=== PATIENT | female | born 1950 | race Caucasian/White ===

== ENCOUNTER 2019-02-20 18:32 | Inpatient (IN) ==
[2019-02-20] MEDS ORDERED: CEFTAZIDIME IV STA (18:59)
[2019-02-20] MEDS ORDERED: DEXTROSE 5% IV STA (18:59)
[2019-02-20] MEDS ORDERED: AZITHROMYCIN 500 MG in DEXTROSE 5% 250 ML IV STA (18:59)
[2019-02-20] MEDS ORDERED: ALBUT/IPRATROP 3MG/0.5MG NEB 3 ML VIAL INH STA (18:59)
[2019-02-20] MEDS ORDERED: cefTRIAXone SODIUM 2,000 MG/70 ML BAG IV ONE (19:30)
--- NOTE | 2019-02-20 19:33 | XRay Report ---
XR chest 1V portable CLINICAL HISTORY: Dyspnea dyspnea COMPARISON STUDY: No previous studies for comparison. Findings: Moderate cordio megaly.. Parenchymal infiltrate left base. Lungs otherwise appear clear. Di aphragms are smooth. Calcifications are sharp. IMPRESSION: Parenchymal infiltrate left base. The above report was generated using voice recognition software. It may contain grammatical, syntax or spelling errors. Electronically signed by: Gustavo Holder M.D. 02/20/2019 7:31 PM
[2019-02-20 19:44] LABS: Alanine Aminotransferase 23 U/L (12-78); Albumin Level 3.2 gm/dl (3.4-5.0); Aspartate Aminotransferase 18 U/L (15-37); BUN Creatinine Ratio 26.8 (10-20); Blood Urea Nitrogen 62 mg/dl (7-18); Calcium 8.8 mg/dl (8.5-10.1); Carbon Dioxide 21 mmol/L (21-32); Chloride 112 mmol/L (98-107); Creatinine Clr Calc Pharmacy 28.8 ml/min; Est GFR (African American) 24.4; Glucose 132 mg/dl (70-99); Potassium 3.9 mmol/L (3.5-5.1); Sodium 142 mmol/L (136-145)
[2019-02-20 19:48] LABS: Albumin Globulin Ratio 1.1 (0.9-2); Alkaline Phosphatase 38 U/L (45-117); Bilirubin,Total 0.7 mg/dl (0.2-1); Globulin 2.8 gm/dl (2.5-4.0); Troponin I < 0.015 ng/ml (0-0.045)
[2019-02-20 19:57] LABS: Influenza A virus by PCR Neg for Influ A (Neg); Influenza B virus by PCR Neg for Influ B (Neg)
[2019-02-20] MEDS ORDERED: SODIUM CHLORIDE 0.9% 1000ML 1,000 ML IV ONE (20:02)
--- NOTE | 2019-02-20 20:02 | Emergency Department Note ---
Entered by Brooklynn Corey acting as a scribe for History of Present Illness General Chief complaint: Shortness of Breath/Dyspnea Stated complaint: sob Time Seen by Provider: 02/20/19 18:52 Source: patient History of Present Illness Provider complaint: Shortness of Breath Onset (ago): day(s) 1 Location: chest Relieved By: + none Exacerbated By: + none Associated symptoms: + cough (With green phlegm ) and + fever/chills The patient is a 68 year old female who presents to the Emergency Room with complaints of shortness of breath that began yesterday. The patient states she had a cold 1 week ago that has gotten progressively worse. The patient states the symptoms are not relieved nor exacerbated by anything specific. The patient reports experiencing a cough that originally brought up clear phlegm and is now green. The patient denies experiencing any fever/chills. Home Medications Home Medications Medication Instructions Recorded Confirmed Type Sodium Bicarb Tab 10 mg PO DAILY 02/20/19 02/20/19 History acetaminophen [Tylenol Extra 1,000 mg PO Q6H PRN 02/20/19 02/20/19 History Strength] amlodipine 10 mg PO DAILY 02/20/19 02/20/19 History chlorthalidone 25 mg PO DAILY 02/20/19 02/20/19 History dapsone 100 mg PO DAILY 02/20/19 02/20/19 History isosorbide mononitrate 30 mg PO QAM 02/20/19 02/20/19 History krill oil 500 mg PO DAILY 02/20/19 02/20/19 History losartan 100 mg PO DAILY 02/20/19 02/20/19 History metoprolol succinate 200 mg PO DAILY 02/20/19 02/20/19 History prednisone 20 mg PO DAILY 02/20/19 02/20/19 History Allergies Allergy/AdvReac Type Severity Reaction Status Date / Time Penicillins Allergy Severe itching Verified 02/20/19 19:23 Past Med/Surg History Medical History No pertinent past medical history Family History Other Family history non-contributory Social History Feels Safe at Home: Yes Smoking Status: Never smoker Review of Systems See HPI for pertinent positives & negatives. and A total of 10 systems reviewed and were otherwise negative Physical Exam Vital Signs Vital Signs - 24 hr 02/20/19 18:38 02/20/19 19:17 Temperature 37.6 C H Temperature Source Oral Pulse Rate 71 Pulse Rate [Right Finger] 85 Pulse Rhythm Regular Pulse Strength Normal Respiratory Rate 20 20 Respiratory Effort / Characteristics Non-Labored Spontaneous Non-Labored Respiratory Depth Normal Respiratory Pattern Regular Blood Pressure 165/74 H Blood Pressure Mean 104 Blood Pressure Position Lying Pulse Oximetry 93 93 Oxygen Delivery Method Nasal Cannula Nasal Cannula Oxygen Flow Rate 3 3 Sepsis Recent Fever Within 48 Hours Yes Sepsis New/Unexplained Change in Mental Status No Sepsis Action Taken by Nursing No Action Required Oxygen Flow Rate - Titration 3 Pulse Oximetry Post Tiitration 94 CONSTITUTIONAL/VITAL SIGNS: Reviewed / noted above. GENERAL: Non-toxic in appearance. INTEGUMENTARY: Warm, dry, and [place]. HEAD: Normocephalic. EYES: without scleral icterus or trauma. ENT/OROPHARYNX: clear and moist. LYMPHADENOPATHY/NECK: Is supple without lymphadenopathy or meningismus. RESPIRATORY: Rhonchi left base. CARDIOVASCULAR: Regular rate and rhythm. GI/ABDOMEN: Soft and nontender. No organomegaly or pulsatile mass. No rebound or guarding. Normal bowel sounds. EXTREMITIES: Warm and well perfused. BACK: No CVA tenderness. NEUROLOGICAL: Intact without focal deficits. PSYCHIATRIC: normal affect. MUSCULOSKELETAL: Normally developed with good muscle tone. Course Course 1852: Past medical records reviewed. The patient was evaluated in room A10. A complete history and physical exam was performed. 1957: I spoke with Dr. Deepika Borden- Hospitalist about the patient's case and she will accept the patient for further evaluation. Administered Medications Discontinued Medications Albuterol (Duoneb) 3 ml INH NOW STA Stop: 02/20/19 19:00 Last Admin: 02/20/19 19:17 Dose: 3 ml Documented by: [id number] Ceftazidime 1 mg/ Dextrose 50 mls @ 100 mls/hr IV NOW STA Stop: 02/20/19 19:28 Last Admin: 02/20/19 19:15 Dose: Not Given Documented by: [id number] Ceftriaxone Sodium (Rocephin) 2,000 mg in 70 mls @ 140 mls/hr IV ONE ONE Stop: 02/20/19 19:59 Last Admin: 02/20/19 19:35 Dose: 140 mls/hr Documented by: [id number] Medical Decision Making Differential Diagnosis Differential diagnosis: Etiologies such as infections, reactive airway disease, COPD, pneumonia, pleural effusion, pulmonary edema, ARDS, pneumothorax, CHF, cardiac ischemia, cardiac tamponade, dysrhythmia, anemia, pulmonary embolism, musculoskeletal, gastrointestinal process, as well as others were entertained. Medical Records Attestation: I reviewed the patient's medical records. Home Medications Current Medication List: was personally reviewed by me Laboratory Data Attestation: I reviewed the patient's lab results. Result diagrams: 02/20/19 19:15 02/20/19 19:15 Lab Results 02/20/19 02/20/19 02/20/19 Range/Units 19:15 19:15 19:15 WBC Cancelled RBC Cancelled Hgb Cancelled Hct Cancelled MCV Cancelled MCH Cancelled MCHC Cancelled RDW Std Deviation Cancelled RDW Coeff of Abigail Cancelled Plt Count Cancelled MPV Cancelled Immature Gran % (Auto) Cancelled Neut % (Auto) Cancelled Lymph % (Auto) Cancelled [place] % (Auto) Cancelled Eos % (Auto) Cancelled Baso % (Auto) Cancelled Immature Gran # (Auto) Cancelled Neut # (Auto) Cancelled Lymph # (Auto) Cancelled [place] # (Auto) Cancelled Eos # (Auto) Cancelled Baso # (Auto) Cancelled Absolute Nucleated RBC Cancelled Nucleated RBC % (auto) Cancelled Neutrophils % (Manual) Cancelled Band Neutrophils % Cancelled Lymphocytes % (Manual) Cancelled Prolymphocyte % Cancelled Reactive Lymphs % (Man) Cancelled Monocytes % (Manual) Cancelled Eosinophils % (Manual) Cancelled Basophils % (Manual) Cancelled Metamyelocytes % (Man) Cancelled Myelocytes % (Man) Cancelled Promyelocytes % (Man) Cancelled Blast Cells % (Manual) Cancelled Plasma Cell % (Manual) Cancelled Other Cells % Cancelled Nucleated RBC % Cancelled Neutrophils # (Manual) Cancelled Band Neutrophils # Cancelled Total Absolute Neuts Cancelled Lymphocytes # (Manual) Cancelled Prolymphocyte # Cancelled Reactive Lymphs # Cancelled Total Abs Lymphocytes Cancelled Monocytes # (Manual) Cancelled Eosinophils # (Manual) Cancelled Basophils # (Manual) Cancelled Metamyelocytes # (Man) Cancelled Myelocytes # (Manual) Cancelled Promyelocytes # (Man) Cancelled Blast Cells # (Man) Cancelled Plasma Cell # (Manual) Cancelled Other Cells # Cancelled Nucleated RBCs # (Man) Cancelled Hypersegmented Neuts Cancelled Hyposegmented Neuts Cancelled Hypogranular Neuts Cancelled Large Granular Lymphs Cancelled # Lrg Granular Lymphs Cancelled Hairy Cells Cancelled Smudge Cells Cancelled Toxic Granulation Cancelled Toxic Vacuolation Cancelled Dohle Bodies Cancelled Thierry Rods Cancelled Platelet Estimate Cancelled Hypogranular Platelets Cancelled Clumped Platelets Cancelled Giant Platelets Cancelled Platelet Satelliting Cancelled RBC Morphology Cancelled Polychromasia Cancelled Hypochromasia Cancelled Poikilocytosis Cancelled Basophilic Stippling Cancelled Anisocytosis Cancelled Microcytosis Cancelled Macrocytosis Cancelled Spherocytes Cancelled Pappenheimer Bodies Cancelled Sickle Cells Cancelled Target Cells Cancelled Tear Drop Cells Cancelled Ovalocytes Cancelled Stomatocytes Cancelled [place] Bodies Cancelled Echinocytes Cancelled Acanthocytes (Spur) Cancelled Rouleaux Cancelled RBC Agglutinates Cancelled Schistocytes Cancelled RBC Morph Comment Cancelled [place] Cell Cancelled PT Cancelled INR Cancelled APTT Cancelled PTT Ratio Cancelled Sodium 142 (136-145) mmol/L Potassium 3.9 (3.5-5.1) mmol/L Chloride 112 H (98-107) mmol/L Carbon Dioxide 21 (21-32) mmol/L Anion Gap 9.0 (3-11) BUN 62 H (7-18) mg/dl Creatinine 2.31 H (0.6-1.2) mg/dl Est Cr Clr Drug Dosing 28.8 ml/min Est GFR ( Amer) 24.4 Est GFR (Non-Af Amer) 21.0 BUN/Creatinine Ratio 26.8 H (10-20) Glucose 132 H (70-99) mg/dl Calcium 8.8 (8.5-10.1) mg/dl Total Bilirubin 0.7 (0.2-1) mg/dl AST 18 (15-37) U/L ALT 23 (12-78) U/L Alkaline Phosphatase 38 L (45-117) U/L Troponin I < 0.015 (0-0.045) ng/ml Total Protein 6.0 L (6.4-8.2) gm/dl Albumin 3.2 L (3.4-5.0) gm/dl Globulin 2.8 (2.5-4.0) gm/dl Albumin/Globulin Ratio 1.1 (0.9-2) Influenza Type A (PCR) (Neg) Influenza Type B (PCR) (Neg) 02/20/19 Range/Units 19:15 WBC RBC Hgb Hct MCV MCH MCHC RDW Std Deviation RDW Coeff of Abigail Plt Count MPV Immature Gran % (Auto) Neut % (Auto) Lymph % (Auto) [place] % (Auto) Eos % (Auto) Baso % (Auto) Immature Gran # (Auto) Neut # (Auto) Lymph # (Auto) [place] # (Auto) Eos # (Auto) Baso # (Auto) Absolute Nucleated RBC Nucleated RBC % (auto) Neutrophils % (Manual) Band Neutrophils % Lymphocytes % (Manual) Prolymphocyte % Reactive Lymphs % (Man) Monocytes % (Manual) Eosinophils % (Manual) Basophils % (Manual) Metamyelocytes % (Man) Myelocytes % (Man) Promyelocytes % (Man) Blast Cells % (Manual) Plasma Cell % (Manual) Other Cells % Nucleated RBC % Neutrophils # (Manual) Band Neutrophils # Total Absolute Neuts Lymphocytes # (Manual) Prolymphocyte # Reactive Lymphs # Total Abs Lymphocytes Monocytes # (Manual) Eosinophils # (Manual) Basophils # (Manual) Metamyelocytes # (Man) Myelocytes # (Manual) Promyelocytes # (Man) Blast Cells # (Man) Plasma Cell # (Manual) Other Cells # Nucleated RBCs # (Man) Hypersegmented Neuts Hyposegmented Neuts Hypogranular Neuts Large Granular Lymphs # Lrg Granular Lymphs Hairy Cells Smudge Cells Toxic Granulation Toxic Vacuolation Dohle Bodies Thierry Rods Platelet Estimate Hypogranular Platelets Clumped Platelets Giant Platelets Platelet Satelliting RBC Morphology Polychromasia Hypochromasia Poikilocytosis Basophilic Stippling Anisocytosis Microcytosis Macrocytosis Spherocytes Pappenheimer Bodies Sickle Cells Target Cells Tear Drop Cells Ovalocytes Stomatocytes [place] Bodies Echinocytes Acanthocytes (Spur) Rouleaux RBC Agglutinates Schistocytes RBC Morph Comment Sezary Cell PT INR APTT PTT Ratio Sodium (136-145) mmol/L Potassium (3.5-5.1) mmol/L Chloride (98-107) mmol/L Carbon Dioxide (21-32) mmol/L Anion Gap (3-11) BUN (7-18) mg/dl Creatinine (0.6-1.2) mg/dl Est Cr Clr Drug Dosing ml/min Est GFR ( Amer) Est GFR (Non-Af Amer) BUN/Creatinine Ratio (10-20) Glucose (70-99) mg/dl Calcium (8.5-10.1) mg/dl Total Bilirubin (0.2-1) mg/dl AST (15-37) U/L ALT (12-78) U/L Alkaline Phosphatase (45-117) U/L Troponin I (0-0.045) ng/ml Total Protein (6.4-8.2) gm/dl Albumin (3.4-5.0) gm/dl Globulin (2.5-4.0) gm/dl Albumin/Globulin Ratio (0.9-2) Influenza Type A (PCR) Neg for Influ A (Neg) Influenza Type B (PCR) Neg for Influ B (Neg) Imaging Data Radiologist's Impression: Radiology results as stated below per my review and the radiologist's interpretation: XR chest 1V portable CLINICAL HISTORY: Dyspnea dyspnea COMPARISON STUDY: No previous studies for comparison. Findings: Moderate cordio megaly.. Parenchymal infiltrate left base. Lungs otherwise appear clear. Diaphragms are smooth. Calcifications are sharp. IMPRESSION: Parenchymal infiltrate left base. The above report was generated using voice recognition software. It may contain grammatical, syntax or spelling errors. Electronically signed by: Gustavo Holder M.D. 02/20/2019 7:31 PM ECG Data Attestation: I personally reviewed and interpreted this ECG as follows: Indication: + SOB/dyspnea Rate (beats per minute): 73 Rhythm: + normal sinus ECG ST segments: + Normal ST segments ECG Findings: no PACs and no PVCs Blood Pressure Blood Pressure Findings: Elevated blood pressure Blood Pressure Disposition: further management by hospitalist MUSA Narrative This is a 68-year-old female who presents to the ED with a chief complaint of shortness of breath and cough and cold symptoms. Her symptoms started 9 days ago and progressively worsened. She came up to visit relatives and today started coughing up green mucus and got worse. She states that she had a pneumonia shot 3 weeks ago. Her symptoms have become mild to moderate. Room air oxygen saturations was 84% on her arrival. The patient uses CPAP at night but not oxygen. The patient has some crackles in the left base. EKG showed a normal sinus rhythm. Chest x-ray shows a left base pneumonia. BUN is 62 and creatinine is 2.3. Troponin was negative. The patient was given a DuoNeb treatment as well as IV Rocephin and IV Zithromax. She was also given normal saline 1 L IV. I spoke with the hospitalist, who will see the patient for further inpatient evaluation and care. Impression & Plan LLL pneumonia, Hypoxia Discharge Plan Visit Data Chief Complaint: Shortness of Breath/Dyspnea Stated Complaint: sob ED Provider: Wayne Schwarz Discharge Problem: LLL pneumonia, Hypoxia Forms Stand Alone Forms: My [facility] Prescriptions Prescriptions: No Action metoprolol succinate 200 mg Tablet Extended Release 24 Hr 200 mg PO DAILY RF: 0 prednisone 20 mg Tablet 20 mg PO DAILY RF: 0 isosorbide mononitrate 30 mg Tablet Extended Release 24 Hr 30 mg PO QAM RF: 0 chlorthalidone 25 mg Tablet 25 mg PO DAILY RF: 0 acetaminophen [Tylenol Extra Strength] 500 mg Tablet 1,000 mg PO Q6H PRN (Reason: Pain) RF: 0 amlodipine 10 mg Tablet 10 mg PO DAILY RF: 0 dapsone 100 mg Tablet 100 mg PO DAILY RF: 0 losartan 100 mg Tablet 100 mg PO DAILY RF: 0 krill oil 500 mg Capsule 500 mg PO DAILY RF: 0 Sodium Bicarb Tab 10 mg PO DAILY RF: 0 Discharge Problem: LLL pneumonia Qualifiers: Pneumonia type: due to unspecified organism Qualified Code(s): J18.1 - Lobar pneumonia, unspecified organism The scribe's documentation has been prepared under my direction and personally reviewed by me in its entirety. I confirm that the note above accurately reflects all work, treatment, procedures, and medical decision making performed by me.
[2019-02-20 20:08] LABS: Hematocrit (blood only) 32.3 % (37-47); Hemoglobin 10.3 g/dL (12.0-16.0); Mean Corpuscular Hgb Conc 31.9 g/dL (32-36); Mean Corpuscular Volume 106.6 fL (80-100); Mean Platelet Volume 9.8 fL (7.4-10.4); Platelet Count 174 K/uL (130-400); RDW Standard Deviation 54.3 fL (36.4-46.3); Red Blood Count 3.03 M/uL (4.2-5.4); White Blood Count 16.72 K/uL (4.8-10.8)
[2019-02-20 20:19] LABS: Partial Thromboplastin Ratio 0.8; Partial Thromboplastin Time 22.5 Seconds (21.0-31.0); Prothrombin Time 9.8 Seconds (9.0-12.0)
[2019-02-20 20:30] LABS: Basophils # (auto) 0.02 K/uL (0-0.2); Basophils % (auto) 0.1 %; Eosinophils # (auto) 0.05 K/uL (0-0.5); Eosinophils % (auto) 0.3 %; Immature Granulocytes # (auto) 0.09 K/uL (0.00-0.02); Immature Granulocytes % (auto) 0.5 %; Lymphocytes # (auto) 0.67 K/uL (1.2-3.4); Monocytes # (auto) 1.01 K/uL (0.11-0.59); Neutrophils # (auto) 14.88 K/uL (1.4-6.5); Neutrophils % (auto) 89.1 %
--- NOTE | 2019-02-20 20:43 | History & Physical Report ---
Date of Service February 20, 2019 Assessment & Plan (1) LLL pneumonia: 60-year-old female with history of hypertension, CKD presenting with approximately 9 days of URI symptoms, found to have left lower lobe pneumonia. Presently she is afebrile, hemodynamically stable, requiring small amount of oxygen via nasal cannula to maintain adequate saturation. No respiratory distress, nontoxic in appearance. Patient with no recent hospital stay, no risk for drug-resistant organisms Admit to medical floor We will cover with ceftriaxone 1 g IV daily and azithromycin 250 mg IV daily for community-acquired pneumonia Tylenol as needed for pain or fever Robitussin as needed for cough Present on Admission?: Yes (2) Hypoxia: Patient hypoxic on arrival to 84% on room air. Saturations have improved with nasal cannula. In setting of pneumonia. No respiratory distress Supplemental oxygen as needed Treatment of pneumonia as above Present on Admission?: Yes (3) CKD (chronic kidney disease): BUN = 62, creatinine = 2.31 estimated GFR = 21. Patient reports history of CKD. Her doctor in [place] is preparing her for future dialysis. Uncertain of baseline renal function -Avoid nephrotoxic agents Renal dosing where required Monitor BUN/creatinine/electrolytes, urine output Continue home dose of sodium bicarb -Continue home dose of prednisone 20 mg p.o. daily. Monitor for hypotension and provide stress dosing if needed Will hold home dapsone for now -Patient asked if she will be able to visit her brother once she is started on dialysis. I told her that when that time comes we can try to establish care with a local rn teacher and dialysis center. Present on Admission?: Yes (4) Hypertension: Blood pressure mildly elevated at present. Continue amlodipine Continue chlorthalidone Continue Imdur Continue losartan Continue metoprolol -Continue to monitor blood pressure Present on Admission?: Yes (5) History of cataract surgery: Patient with recent cataract surgery. No complications or complaints She may continue her drops as prescribed -bromfenac 1 drop in the right eye twice daily -prednisolone 1 drop to the right eye 3 times daily -ofloxacin 1 drop to the right eye 4 times daily Patient may use her own eyedrops F/E/N-normal saline at 125 mL/h x 1 L, monitor electrolytes and replete as needed, heart healthy diet as tolerated. Patient with fairly heavy alcohol use, reports 10 drinks per week. Reports that this is down from her prior amount. States that she has no history of withdrawal or seizures. She has gone days to weeks at a time with no alcohol consumption with no problem. Will monitor for withdrawals. No AWSS orders at this time Prophylaxisheparin Codefull Dispositionadmit to medical floor Present on Admission?: Yes History of Present Illness Chief Complaint: Pneumonia Primary Care Provider: NO PCP Ave Gutierrez is a pleasant 68-year-old female with history of hypertension, CKD presenting with pneumonia. Patient is originally from [facility] and is currently in the [place] area visiting her brother. She reports having mild URI symptoms beginning approximately 9 days ago on 02/11/2019, scratchy throat cough and clear phlegm. She manage the symptoms conservatively at home with some improvement. She flew to [place] from [place] on 02/15/2019. Her cold symptoms have been progressively worsening since then. She reports cough productive for green sputum as well as dyspnea on exertion/shortness of breath, some mild chest discomfort associated with cough. Today she experienced shaking chills and had an episode of near syncope which occurred while she was sitting on the commode. Initial vital signs patient found to be afebrile, hypertensive, hypoxic to 84% on room air. This improved to 92% with use of 3 L. Patient with no additional complaints at this time ER course: Albuterol neb, ceftriaxone, azithromycin Allergies Allergy/AdvReac Type Severity Reaction Status Date / Time Penicillins Allergy Severe itching Verified 02/20/19 19:23 Home Medications Home Medications Medication Instructions Recorded Confirmed Type Sodium Bicarb Tab 10 mg PO DAILY 02/20/19 02/20/19 History acetaminophen [Tylenol Extra 1,000 mg PO Q6H PRN 02/20/19 02/20/19 History Strength] amlodipine 10 mg PO DAILY 02/20/19 02/20/19 History chlorthalidone 25 mg PO DAILY 02/20/19 02/20/19 History dapsone 100 mg PO DAILY 02/20/19 02/20/19 History isosorbide mononitrate 30 mg PO QAM 02/20/19 02/20/19 History krill oil 500 mg PO DAILY 02/20/19 02/20/19 History losartan 100 mg PO DAILY 02/20/19 02/20/19 History metoprolol succinate 200 mg PO DAILY 02/20/19 02/20/19 History prednisone 20 mg PO DAILY 02/20/19 02/20/19 History Past Med/Surg History Medical History (Updated 02/20/19 @ 21:05 by Huyen Borden DO) CKD (chronic kidney disease) Hypertension Surgical History (Updated 02/20/19 @ 21:09 by Huyen Borden DO) History of cataract surgery Family History (Updated 02/20/19 @ 20:58 by Huyen Borden DO) Other Asthma Coronary heart disease Dementia Social History (Updated 02/20/19 @ 20:58 by Huyen Borden DO) Feels Safe at Home: Yes Smoking Status: Never smoker Hx Alcohol Use: Yes (Approximately 10 drinks per week) Hx Substance Use: No Review of Systems Review of Systems: All systems reviewed & are unremarkable except as noted in HPI & below Patient denies fevers, abdominal pain, nausea, vomiting, diarrhea, constipation, dysuria, frequency, urgency Patient makes urine. Denies hematuria. + Foamy urine + metallic taste to food Physical Exam Physical Exam: General: patient resting comfortably, NAD, non-toxic in appearance, AA&O x 4, nasal cannula in place Skin: warm, dry, intact, no rashes or lesions HEENT: NC/AT, PERRL, EOMI, anicteric sclera, conjunctiva without injection, external ear normal to inspection and nontender, nares patent, moist mucus membranes, dentition intact, no oropharyngeal lesions, neck supple, trachea midline, no LAD, no thyromegaly, no JVD Heart: +S1/S2, regular, no m/r/g Lungs: equal air entry bilaterally, + crackles and coarse breath sounds in left base, faint scattered end expiratory wheezing in left lung Abd: +BS, soft, NT/ND, no masses/organomegaly/ascites Ext: warm, 2+ pulses in UE/LE bilaterally, no clubbing/cyanosis or edema, no calf tenderness Neuro: nonfocal, patient AA&O x 4, speech intact, no facial droop, moving all extremities on command with equal strength 5/5 Results & Data Vital Signs (Past 12 Hours) Vital Signs Temp Pulse Pulse Resp BP Pulse Ox 02/20/19 20:00 82 19 92 02/20/19 19:30 79 24 93 02/20/19 19:17 85 20 93 02/20/19 19:00 76 21 93 02/20/19 18:40 74 21 92 02/20/19 18:38 37.6 C H 70 24 165/74 H 93 Laboratory Results Lab Results 02/20/19 02/20/19 02/20/19 Range/Units 19:15 19:15 19:15 WBC Cancelled RBC Cancelled Hgb Cancelled Hct Cancelled MCV Cancelled MCH Cancelled MCHC Cancelled RDW Std Deviation Cancelled RDW Coeff of Abigail Cancelled Plt Count Cancelled MPV Cancelled Immature Gran % (Auto) Cancelled Neut % (Auto) Cancelled Lymph % (Auto) Cancelled Park % (Auto) Cancelled Eos % (Auto) Cancelled Baso % (Auto) Cancelled Immature Gran # (Auto) Cancelled Neut # (Auto) Cancelled Lymph # (Auto) Cancelled Park # (Auto) Cancelled Eos # (Auto) Cancelled Baso # (Auto) Cancelled Absolute Nucleated RBC Cancelled Nucleated RBC % (auto) Cancelled Neutrophils % (Manual) Cancelled Band Neutrophils % Cancelled Lymphocytes % (Manual) Cancelled Prolymphocyte % Cancelled Reactive Lymphs % (Man) Cancelled Monocytes % (Manual) Cancelled Eosinophils % (Manual) Cancelled Basophils % (Manual) Cancelled Metamyelocytes % (Man) Cancelled Myelocytes % (Man) Cancelled Promyelocytes % (Man) Cancelled Blast Cells % (Manual) Cancelled Plasma Cell % (Manual) Cancelled Other Cells % Cancelled Nucleated RBC % Cancelled Neutrophils # (Manual) Cancelled Band Neutrophils # Cancelled Total Absolute Neuts Cancelled Lymphocytes # (Manual) Cancelled Prolymphocyte # Cancelled Reactive Lymphs # Cancelled Total Abs Lymphocytes Cancelled Monocytes # (Manual) Cancelled Eosinophils # (Manual) Cancelled Basophils # (Manual) Cancelled Metamyelocytes # (Man) Cancelled Myelocytes # (Manual) Cancelled Promyelocytes # (Man) Cancelled Blast Cells # (Man) Cancelled Plasma Cell # (Manual) Cancelled Other Cells # Cancelled Nucleated RBCs # (Man) Cancelled Hypersegmented Neuts Cancelled Hyposegmented Neuts Cancelled Hypogranular Neuts Cancelled Large Granular Lymphs Cancelled # Lrg Granular Lymphs Cancelled Hairy Cells Cancelled Smudge Cells Cancelled Toxic Granulation Cancelled Toxic Vacuolation Cancelled Dohle Bodies Cancelled Thierry Rods Cancelled Platelet Estimate Cancelled Hypogranular Platelets Cancelled Clumped Platelets Cancelled Giant Platelets Cancelled Platelet Satelliting Cancelled RBC Morphology Cancelled Polychromasia Cancelled Hypochromasia Cancelled Poikilocytosis Cancelled Basophilic Stippling Cancelled Anisocytosis Cancelled Microcytosis Cancelled Macrocytosis Cancelled Spherocytes Cancelled Pappenheimer Bodies Cancelled Sickle Cells Cancelled Target Cells Cancelled Tear Drop Cells Cancelled Ovalocytes Cancelled Stomatocytes Cancelled Schroeder-Dendron Bodies Cancelled Echinocytes Cancelled Acanthocytes (Spur) Cancelled Rouleaux Cancelled RBC Agglutinates Cancelled Schistocytes Cancelled RBC Morph Comment Cancelled Sezary Cell Cancelled PT Cancelled INR Cancelled APTT Cancelled PTT Ratio Cancelled Sodium 142 (136-145) mmol/L Potassium 3.9 (3.5-5.1) mmol/L Chloride 112 H (98-107) mmol/L Carbon Dioxide 21 (21-32) mmol/L Anion Gap 9.0 (3-11) BUN 62 H (7-18) mg/dl Creatinine 2.31 H (0.6-1.2) mg/dl Est Cr Clr Drug Dosing 28.8 ml/min Est GFR ( Amer) 24.4 Est GFR (Non-Af Amer) 21.0 BUN/Creatinine Ratio 26.8 H (10-20) Glucose 132 H (70-99) mg/dl Calcium 8.8 (8.5-10.1) mg/dl Total Bilirubin 0.7 (0.2-1) mg/dl AST 18 (15-37) U/L ALT 23 (12-78) U/L Alkaline Phosphatase 38 L (45-117) U/L Troponin I < 0.015 (0-0.045) ng/ml Total Protein 6.0 L (6.4-8.2) gm/dl Albumin 3.2 L (3.4-5.0) gm/dl Globulin 2.8 (2.5-4.0) gm/dl Albumin/Globulin Ratio 1.1 (0.9-2) Influenza Type A (PCR) (Neg) Influenza Type B (PCR) (Neg) 02/20/19 02/20/19 02/20/19 Range/Units 19:15 20:00 20:00 WBC 16.72 H RBC 3.03 L Hgb 10.3 L Hct 32.3 L MCV 106.6 H MCH 34.0 MCHC 31.9 L RDW Std Deviation 54.3 H RDW Coeff of Abigail 14.0 Plt Count 174 MPV 9.8 Immature Gran % (Auto) 0.5 Neut % (Auto) 89.1 Lymph % (Auto) 4.0 Park % (Auto) 6.0 Eos % (Auto) 0.3 Baso % (Auto) 0.1 Immature Gran # (Auto) 0.09 H Neut # (Auto) 14.88 H Lymph # (Auto) 0.67 L Park # (Auto) 1.01 H Eos # (Auto) 0.05 Baso # (Auto) 0.02 Absolute Nucleated RBC Nucleated RBC % (auto) Neutrophils % (Manual) Band Neutrophils % Lymphocytes % (Manual) Prolymphocyte % Reactive Lymphs % (Man) Monocytes % (Manual) Eosinophils % (Manual) Basophils % (Manual) Metamyelocytes % (Man) Myelocytes % (Man) Promyelocytes % (Man) Blast Cells % (Manual) Plasma Cell % (Manual) Other Cells % Nucleated RBC % Neutrophils # (Manual) Band Neutrophils # Total Absolute Neuts Lymphocytes # (Manual) Prolymphocyte # Reactive Lymphs # Total Abs Lymphocytes Monocytes # (Manual) Eosinophils # (Manual) Basophils # (Manual) Metamyelocytes # (Man) Myelocytes # (Manual) Promyelocytes # (Man) Blast Cells # (Man) Plasma Cell # (Manual) Other Cells # Nucleated RBCs # (Man) Hypersegmented Neuts Hyposegmented Neuts Hypogranular Neuts Large Granular Lymphs # Lrg Granular Lymphs Hairy Cells Smudge Cells Toxic Granulation Toxic Vacuolation Dohle Bodies Thierry Rods Platelet Estimate Hypogranular Platelets Clumped Platelets Giant Platelets Platelet Satelliting RBC Morphology Polychromasia Hypochromasia Poikilocytosis Basophilic Stippling Anisocytosis Microcytosis Macrocytosis Spherocytes Pappenheimer Bodies Sickle Cells Target Cells Tear Drop Cells Ovalocytes Stomatocytes Schroeder-Dendron Bodies Echinocytes Acanthocytes (Spur) Rouleaux RBC Agglutinates Schistocytes RBC Morph Comment Sezary Cell PT 9.8 INR 1.0 APTT 22.5 PTT Ratio 0.8 Sodium (136-145) mmol/L Potassium (3.5-5.1) mmol/L Chloride (98-107) mmol/L Carbon Dioxide (21-32) mmol/L Anion Gap (3-11) BUN (7-18) mg/dl Creatinine (0.6-1.2) mg/dl Est Cr Clr Drug Dosing ml/min Est GFR ( Amer) Est GFR (Non-Af Amer) BUN/Creatinine Ratio (10-20) Glucose (70-99) mg/dl Calcium (8.5-10.1) mg/dl Total Bilirubin (0.2-1) mg/dl AST (15-37) U/L ALT (12-78) U/L Alkaline Phosphatase (45-117) U/L Troponin I (0-0.045) ng/ml Total Protein (6.4-8.2) gm/dl Albumin (3.4-5.0) gm/dl Globulin (2.5-4.0) gm/dl Albumin/Globulin Ratio (0.9-2) Influenza Type A (PCR) Neg for Influ A (Neg) Influenza Type B (PCR) Neg for Influ B (Neg) Diagnostic Findings XR chest 1V portable CLINICAL HISTORY: Dyspnea dyspnea COMPARISON STUDY: No previous studies for comparison. Findings: Moderate cordio megaly.. Parenchymal infiltrate left base. Lungs otherwise appear clear. Diaphragms are smooth. Calcifications are sharp. IMPRESSION: Parenchymal infiltrate left base. The above report was generated using voice recognition software. It may contain grammatical, syntax or spelling errors. Electronically signed by: Gustavo Hodler M.D. 02/20/2019 7:31 PM Dictated: 02/20/191929 Transcribed: 02/20/191929 Code Status & VTE Plan Code Status Full code VTE Prophylaxis Plan VTE Prophylaxis will be ordered: Yes PG Care Time/CCT Total # of Minutes Spent Total Time Spent with Patient: Total time spent is greater than 50% in coordination of care (as documented) at patient's floor/unit and/or counseling patient: (1) CKD (chronic kidney disease) Chronic kidney disease stage: stage 4 (severe) Qualified Code(s): N18.4 - Chronic kidney disease, stage 4 (severe) (2) Hypertension Hypertension type: essential hypertension Qualified Code(s): I10 - Essential (primary) hypertension (3) LLL pneumonia Pneumonia type: due to unspecified organism Qualified Code(s): J18.1 - Lobar pneumonia, unspecified organism (4) History of cataract surgery Laterality: right Qualified Code(s): Z98.41 - Cataract extraction status, right eye
[2019-02-20] MEDS ORDERED: ACETAMINOPHEN 500 MG TAB PO PRN (21:46)
[2019-02-20] MEDS ORDERED: SODIUM CHLORIDE 0.9% 1000ML 1,000 ML IV SCH (21:46)
[2019-02-20] MEDS ORDERED: ALBUTEROL 0.5% NEB SOLN 2.5 MG/0.5 ML VIAL NEB PRN (21:46)
[2019-02-20 22:06] LABS: Magnesium 1.9 mg/dl (1.8-2.4); Phosphorus 3.3 mg/dl (2.5-4.9)
[2019-02-20] MEDS: HEPARIN SOD 5,000 UNIT/0.5 ML VIAL SQ SCH (22:11)
[2019-02-20] MEDS: prednisoLONE acetate 1% OP SUSP 5 ML BTL OPR SCH (23:51)
[2019-02-20] MEDS: BROMFENAC OPR SCH (23:52)
[2019-02-20] MEDS: OFLOXACIN 0.3% OP SOLN 5 ML BTL OPR SCH (23:52)
[2019-02-21] MEDS: HEPARIN SOD 5,000 UNIT/0.5 ML VIAL SQ SCH ×3 (05:25→20:46)
[2019-02-21 06:26] LABS: Hematocrit (blood only) 27.1 % (37-47); Hemoglobin 8.8 g/dL (12.0-16.0); Mean Corpuscular Hemoglobin 34.5 pg (25-34); Mean Corpuscular Hgb Conc 32.5 g/dL (32-36); Mean Corpuscular Volume 106.3 fL (80-100); Mean Platelet Volume 9.7 fL (7.4-10.4); Platelet Count 164 K/uL (130-400); RDW Coefficient of Variation 13.8 % (11.5-14.5); RDW Standard Deviation 53.2 fL (36.4-46.3); Red Blood Count 2.55 M/uL (4.2-5.4)
[2019-02-21 07:03] LABS: Calcium 8.8 mg/dl (8.5-10.1); Creatinine Clr Calc Pharmacy 31.8 ml/min; Est GFR (African American) 27.5; Est GFR (Non-African American) 23.7; Potassium 3.7 mmol/L (3.5-5.1)
[2019-02-21 07:11] LABS: Basophils # (auto) 0.01 K/uL (0-0.2); Basophils % (auto) 0.1 %; Eosinophils # (auto) 0.02 K/uL (0-0.5); Eosinophils % (auto) 0.1 %; Immature Granulocytes # (auto) 0.08 K/uL (0.00-0.02); Immature Granulocytes % (auto) 0.6 %; Lymphocytes # (auto) 0.63 K/uL (1.2-3.4); Lymphocytes % (auto) 4.5 %; Monocytes # (auto) 0.75 K/uL (0.11-0.59); Monocytes % (auto) 5.4 %; Neutrophils # (auto) 12.41 K/uL (1.4-6.5); Neutrophils % (auto) 89.3 %
[2019-02-21] MEDS ORDERED: NON-FORMULARY MEDICATION (Krill Oil 500 MG) PO SCH (09:00)
[2019-02-21] MEDS: SODIUM BICARBONATE 650 MG TAB PO SCH (09:38)
[2019-02-21] MEDS: AMLODIPINE BESYLATE 5 MG TAB PO SCH (09:39)
[2019-02-21] MEDS: predniSONE 20 MG TAB PO SCH (09:39)
[2019-02-21] MEDS: ISOSORBIDE MONO EXTENDED REL 30 MG TABCR PO SCH (09:39)
[2019-02-21] MEDS: prednisoLONE acetate 1% OP SUSP 5 ML BTL OPR SCH ×3 (09:40→20:41)
[2019-02-21] MEDS: CHLORTHALIDONE 25 MG TAB PO SCH (09:40)
[2019-02-21] MEDS: BROMFENAC OPR SCH ×2 (09:40→20:41)
[2019-02-21] MEDS: METOPROLOL SUCC 50MG EXT REL TAB PO SCH (09:40)
[2019-02-21] MEDS: LOSARTAN POTASSIUM 50 MG TAB PO SCH (09:40)
[2019-02-21] MEDS: OFLOXACIN 0.3% OP SOLN 5 ML BTL OPR SCH ×4 (09:41→20:41)
[2019-02-21] MEDS: guaiFENesin SUGAR FREE 100 MG/5 ML UDC PO PRN ×2 (09:41→16:36)
--- NOTE | 2019-02-21 18:24 | Hospitalist Progress Note ---
Date of Service February 21, 2019 Assessment & Plan (1) LLL pneumonia: - CXR with L infiltrate - reporting URI symptoms x 9 days and recent travel from [place], [place] - Continue Ceftriaxone 1 g IV daily and Azithromycin 250 mg IV daily for CAP - Nebs PRN; Supportive care (2) Hypoxia: - Hypoxic at 84% on RA on admission - intermittent desats while admitted but no respiratory distress - Continues supplemental O2 as needed and treatment as above - Given recent travel and presentation there is consideration for PE however given renal function this limits CTA - given her nasal congestion and URI symptoms this favors more of an infectious etiology as she also reports some improvement since admission - no tachycardia on admission - if slow to progress will need to further evaluate for PE (3) CKD (chronic kidney disease): - Cr improved to 2.09 with hydration - follows with Nephrology in [place] who is preparing her for future dialysis - patient is unsure of baseline Cr - Continue to monitor labs; electrolytes acceptable with no indication for urgent dialysis - Continue sodium bicarb 650 mg daily; Prednisone 20 mg daily - Given renal function and talks of dialysis would suspect renal function may be rather close to baseline and can continue diuretics/ARB; given patient reports she is likely CKD Stage IV (4) Hypertension: - Continue Amlodipine 10 mg daily, Chlorthalidone 25 mg daily, Imdur 30 mg daily, Losartan 100 mg daily, and Toprol XL 200 mg daily (5) History of cataract surgery: - Recent cataract surgery - stable - Continue eye drops as prescribed - -Bromfenac 1 drop in the right eye twice daily -Prednisolone 1 drop to the right eye 3 times daily -Ofloxacin 1 drop to the right eye 4 times daily Patient may use her own eyedrops (6) Alcohol use: - Reports approx. 10 drinks per week which is down from prior amount - No H/O withdrawal or seizures - no objective signs of withdrawal - reports going days-weeks with no alcohol without issue (7) DVT prophylaxis: - Heparin Disposition: Clinically improving; will continue to wean O2 and possible D/C next 1-2 days Subjective Reports feeling a little better today. Continues to have intermittent desaturations and maintaining on supplemental O2. WBC is improving and Cr improving. Uncertain on Cr baseline but electrolytes acceptable. Verbalizes no new complaints at this time Review of Systems Constitutional: no fever and no chills Ear, Nose, Mouth, Throat: + nasal congestion; no sore throat, no hoarseness and no dysphagia Respiratory: + cough, + dyspnea, + sputum production and + wheezing Cardiovascular: no chest pain, no palpitations and no edema Gastrointestinal: no abdominal pain, no nausea, no vomiting, no constipation and no diarrhea/loose stools Genitourinary: no dysuria Integumentary: no rash Physical Exam Constitutional: WD/WN, vitals as above Eyes: + anicteric sclerae ENMT: Ears: no hearing impairment Neck: trachea midline Respiratory: normal respiratory effort Auscultation: + diminished lung sounds and + rhonchi Cardiovascular: RRR, no murmur, no edema Gastrointestinal (Abdomen): Inspection/Auscultation: normal bowel sounds Percussion/Palpation: abdomen soft; abdomen nontender Skin: no rashes, warm and dry Neurologic: moves all extremities Psychiatric: A+Ox3, euthymic affect Results & Data Vital Signs (Past 12 Hours) Vital Signs Temp Pulse Pulse Resp BP Pulse Ox 02/21/19 15:50 37.2 C 78 16 133/78 90 02/21/19 12:10 37.7 C H 76 18 140/70 91 02/21/19 09:22 90 02/21/19 08:00 90 02/21/19 07:35 37.7 C H 80 20 158/78 H 89 L PG Care Time/CCT Total # of Minutes Spent Total Time Spent with Patient: Total time spent is greater than 50% in coordination of care (as documented) at patient's floor/unit and/or counseling patient: (1) CKD (chronic kidney disease) Chronic kidney disease stage: stage 4 (severe) Qualified Code(s): N18.4 - Chronic kidney disease, stage 4 (severe) (2) LLL pneumonia Pneumonia type: due to unspecified organism Qualified Code(s): J18.1 - Lobar pneumonia, unspecified organism (3) History of cataract surgery Laterality: right Qualified Code(s): Z98.41 - Cataract extraction status, right eye (4) Hypertension Hypertension type: essential hypertension Qualified Code(s): I10 - Essential (primary) hypertension
[2019-02-21] MEDS ORDERED: cefTRIAXone SODIUM 2,000 MG in DEXTROSE 5% 50 ML IV SCH (19:00)
[2019-02-21] MEDS ORDERED: AZITHROMYCIN 250 MG in DEXTROSE 5% 250 ML IV SCH (20:00)
[2019-02-22] MEDS: HEPARIN SOD 5,000 UNIT/0.5 ML VIAL SQ SCH ×2 (05:43→13:03)
[2019-02-22] MEDS: guaiFENesin SUGAR FREE 100 MG/5 ML UDC PO PRN ×2 (07:59→14:03)
[2019-02-22 08:22] LABS: Hematocrit (blood only) 28.2 % (37-47); Hemoglobin 9.1 g/dL (12.0-16.0); Mean Corpuscular Hemoglobin 34.6 pg (25-34); Mean Corpuscular Hgb Conc 32.3 g/dL (32-36); Mean Corpuscular Volume 107.2 fL (80-100); Mean Platelet Volume 9.8 fL (7.4-10.4); Platelet Count 184 K/uL (130-400); RDW Standard Deviation 54.7 fL (36.4-46.3); Red Blood Count 2.63 M/uL (4.2-5.4); White Blood Count 10.81 K/uL (4.8-10.8)
[2019-02-22] MEDS: prednisoLONE acetate 1% OP SUSP 5 ML BTL OPR SCH ×2 (08:52→13:03)
[2019-02-22] MEDS: OFLOXACIN 0.3% OP SOLN 5 ML BTL OPR SCH ×3 (08:52→18:08)
[2019-02-22] MEDS: BROMFENAC OPR SCH (08:52)
[2019-02-22] MEDS: SODIUM BICARBONATE 650 MG TAB PO SCH (08:53)
[2019-02-22] MEDS: AMLODIPINE BESYLATE 5 MG TAB PO SCH (08:53)
[2019-02-22] MEDS: CHLORTHALIDONE 25 MG TAB PO SCH (08:53)
[2019-02-22] MEDS: LOSARTAN POTASSIUM 50 MG TAB PO SCH (08:53)
[2019-02-22] MEDS: METOPROLOL SUCC 50MG EXT REL TAB PO SCH (08:53)
[2019-02-22] MEDS: ISOSORBIDE MONO EXTENDED REL 30 MG TABCR PO SCH (08:53)
[2019-02-22] MEDS: predniSONE 20 MG TAB PO SCH (08:53)
[2019-02-22 08:58] LABS: Calcium 9.1 mg/dl (8.5-10.1); Creatinine Clr Calc Pharmacy 27.6 ml/min; Est GFR (African American) 23.1; Potassium 3.5 mmol/L (3.5-5.1)
[2019-02-22] MEDS ORDERED: ALBUTEROL HFA 8 GM INHALER INH PRN (17:03)
[2019-02-22] MEDS ORDERED: AZITHROMYCIN 250 MG TAB PO ONE (17:03)
[2019-02-22] MEDS ORDERED: CEFDINIR 300 MG CAP PO ONE (17:15)
--- NOTE | 2019-02-22 20:26 | Discharge Summary ---
Date of Service February 22, 2019 Admission HPI Per Admitting Provider Ave Gutierrez is a pleasant 68-year-old female with history of hypertension, CKD presenting with pneumonia. Patient is originally from [facility] and is currently in the [place] area visiting her brother. She reports having mild URI symptoms beginning approximately 9 days ago on 02/11/2019, scratchy throat cough and clear phlegm. She manage the symptoms conservatively at home with some improvement. She flew to [place] from [place] on 02/15/2019. Her cold symptoms have been progressively worsening since then. She reports cough productive for green sputum as well as dyspnea on exertion/shortness of breath, some mild chest discomfort associated with cough. Today she experienced shaking chills and had an episode of near syncope which occurred while she was sitting on the commode. Initial vital signs patient found to be afebrile, hypertensive, hypoxic to 84% on room air. This improved to 92% with use of 3 L. Patient with no additional complaints at this time ER course: Albuterol neb, ceftriaxone, azithromycin Principal Diagnosis Community-Acquired Pneumonia Discharge Exam Constitutional WD/WN, vitals as above Eyes + anicteric sclerae ENMT Ears: no hearing impairment Neck trachea midline Respiratory normal respiratory effort Auscultation: + diminished lung sounds and + rhonchi (L base) Cardiovascular RRR, no murmur, no edema Gastrointestinal (Abdomen) Inspection/Auscultation: normal bowel sounds Percussion/Palpation: abdomen soft; abdomen nontender Skin no rashes, warm and dry Neurologic moves all extremities Psychiatric A+Ox3, euthymic affect Discharge Data Allergies Allergy/AdvReac Type Severity Reaction Status Date / Time Penicillins Allergy Severe itching Verified 02/20/19 19:23 Consultations 02/20/19 21:46 Consult Case Management - Discharge Planning Routine Hospital Course (1) LLL pneumonia: - CXR with L infiltrate - reporting URI symptoms x 9 days and recent travel from [place], [place] - Convert to Cefdinir 300 mg daily x 8 days for renal adjustments; Zithromax 250 mg x 2 more days - Will prescribe Albuterol inhaler for PRN use (2) Hypoxia: - Hypoxic at 84% on RA on admission - intermittent desats while admitted but no respiratory distress - while discussing with her prior to D/C I kept her on pulse ox for approx. 15 minutes while discussing plan and pulse ox ranged from 90-94% - Given recent travel and presentation there is consideration for PE however given renal function this limits CTA - given her nasal congestion and URI symp toms this favors more of an infectious etiology as she also reports improvement since admission - no tachycardia on admission - Likely has a component of hypoventilation syndrome; has diagnosed KATARINA and utilized CPAP - advised her to use CPAP even with naps while recovering from PNA (3) CKD (chronic kidney disease): - Cr stable - follows with Nephrology in [place] who is preparing her for future dialysis - patient is unsure of baseline Cr - Electrolytes were acceptable with no indication for urgent dialysis - Continue sodium bicarb; Prednisone 20 mg daily - Given renal function and talks of dialysis would suspect renal function may be rather close to baseline and can continue diuretics/ARB; given patient reports she is likely CKD Stage IV (4) Hypertension: - Continue Amlodipine 10 mg daily, Chlorthalidone 25 mg daily, Imdur 30 mg daily, Losartan 100 mg daily, and Toprol XL 200 mg daily (5) History of cataract surgery: - Recent cataract surgery - stable - Continue eye drops as prescribed -Bromfenac 1 drop in the right eye twice daily -Prednisolone 1 drop to the right eye 3 times daily -Ofloxacin 1 drop to the right eye 4 times daily (6) Alcohol use: - Reports approx. 10 drinks per week which is down from prior amount - No H/O withdrawal or seizures - no objective signs of withdrawal - reports going days-weeks with no alcohol without issue (7) DVT prophylaxis: - Heparin Disposition: Wean off O2; will complete Abx course with PRN albuterol; plans to be in the [place] area for approx. 1 week while visiting her brother; resident of [place], [place] Total Time Total Time Spent Total Time Spent (In Minutes): Greater than 30 minutes Discharge Plan Discharge Items Patient Disposition: Home - Self-Care Reason For Visit: PNEUMONIA Discharge Diagnosis: Pneumonia Activity: Resume your previous activity Non-emergency contact: Primary Care Provider Call non-emergency contact if: you have any medication questions, your symptoms worsen and you have a fever Follow-up/Referrals: PCP,NO [Primary Care Provider] - Diet: Dialysis Renal Addtl Attending Provider Instructions: Left Lower Lobe Pneumonia: - You were admitted for a pneumonia in the left lung. - You will need to continue antibiotics to complete a treatment course. -- You will take Azithromycin 250 mg once daily today and tomorrow and will complete this. This is a longer acting antibiotic so it stays in your system longer. If you have a dose in the hospital today and are given a pill to go home you will NOT need to pick this prescription up from the pharmacy. -- You will also take Cefdinir 300 mg once daily starting tonight on 02/22 and take for 8 more days. This medication has been adjusted to your kidney numbers so will only be dosed once a day - You will also be given a prescription for an inhaler to use while recovering from pneumonia. This is called albuterol and helps keep the lungs more open. - It will also be important to rest as fatigue and coughing will linger for several days. Stay hydrated and eat as you can to keep your energy up. - Continue to use your CPAP at night. - If you feel like your breathing is worsening or feel like your symptoms are worsening please come back to the ER to be evaluated. Home Medications: - You will continue your home medications as previously prescribed. We did not make changes to these. Would hold your Dapsone until you finish your antibiotics for your pneumonia then can resume that as previously prescribed. Stand-Alone Forms: [facility] [employer], Smoking Cessation Medications and DC Order Prescriptions: New cefdinir 300 mg capsule 300 mg PO DAILY 8 Days Qty: 8 RF: 0 albuterol sulfate 90 mcg/actuation HFA aerosol inhaler 2 puffs INH QID PRN (Reason: shortness of breath or wheezing) Qty: 6.7 RF: 0 Continued metoprolol succinate 200 mg Tablet Extended Release 24 Hr 200 mg PO DAILY RF: 0 prednisone 20 mg Tablet 20 mg PO DAILY RF: 0 isosorbide mononitrate 30 mg Tablet Extended Release 24 Hr 30 mg PO QAM RF: 0 chlorthalidone 25 mg Tablet 25 mg PO DAILY RF: 0 acetaminophen [Tylenol Extra Strength] 500 mg Tablet 1,000 mg PO Q6H PRN (Reason: Pain) RF: 0 amlodipine 10 mg Tablet 10 mg PO DAILY RF: 0 dapsone 100 mg Tablet 100 mg PO DAILY RF: 0 losartan 100 mg Tablet 100 mg PO DAILY RF: 0 krill oil 500 mg Capsule 500 mg PO DAILY RF: 0 Sodium Bicarb Tab 10 mg PO DAILY RF: 0 Discharge Orders: Discharge Order (Routine); Ordered 02/22/19 Ordered By: Emily Michael/Other Patient Handouts: Inhaler Use, Pneumonia Dc Admission Data Admit Date/Time: 02/20/19 20:35 Attending Provider: Cristo Lloyd Admit Provider: Huyen Borden Primary Care Provider: PCP,NO Other Interventions: Discharge Summary Assessment (RN) Last Done: 02/22/19 19:18 DC Date/Time DO NOT enter until pt leaves facility: 02/22/19 19:21 Supervising Physician Co-Signing Physician Notes Attending note: patient seen and examined with Emily Jean PA-C. I agree with her discharge summary. I personally reviewed the labs and imaging findings. patient feeling much better, coughing less, breathing easier does not require oxygen, saturations in the low 90's on room air discussed that she should get rest, hopefully her family can help with preparing Thanksgiving meal she plans to return to [facility] in a week - Pneumonia: responded well to antibiotics, d/c home on Zithromax and Cefdinir no longer hypoxic for full details see the d/c summary
== END 2019-02-22 19:21 | disposition home or self-care (01) | DRG 194 ==
LOC: ED 18:32 → 3W 20:35 → SUATTDRO 20:35 → 3W 21:07